=== PATIENT | male | born 1935 | race Hispanic/Latino ===

== ENCOUNTER 2018-03-28 07:54 | Observation (INO) | payer MEDICARE ==
[2018-03-26 08:42] VITALS: BP 147/69
[2018-03-26 08:44] LABS: BASOPHILS % (AUTO) 0.6 % (0.0-5.0); HEMATOCRIT 44.8 % (42-54); LYMPHOCYTES % (AUTO) 16.7 % (21.0-51.0); MEAN CORPUSCULAR HEMOGLOBIN 30.6 pg (27.0-33.0); MEAN CORPUSCULAR HGB CONC 34.2 g/dL (32.0-36.0); MEAN CORPUSCULAR VOLUME 89.5 fL (79-99); MONOCYTES % (AUTO) 12.4 % (3.0-13.0); NEUTROPHILS % (AUTO) 67.3 % (40.0-77.0); PLATELET COUNT (AUTO) 177 K/uL (130-400); RED CELL DISTRIBUTION WIDTH 13.2 % (11.0-15.5); WHITE BLOOD COUNT (AUTO) 5.8 K/uL (4.8-10.8)
[2018-03-26 08:52] LABS: POTASSIUM 3.9 mmol/L (3.5-5.1)
[2018-03-26 08:57] LABS: INR 1.05 (0.85-1.15); PARTIAL THROMBOPLASTIN TIME 29.9 SEC (26.3-35.5)
[~2018-03-28] VITALS: Ht 162.6 cm; Wt 86.5 kg
[2018-03-28] VITALS (11 sets, daily range): BP systolic 98–152; BP diastolic 53–77
[~2018-03-28 07:54] MED LIST: ATOR20TA65 PO; FINA5TAB41 PO; METF-444 PO; TIMO5DRO35 OS
[2018-03-28] MEDS ORDERED: SODIUM CHLORIDE 0.9% 1000ML 1,000 ML IV SCH (08:00)
[2018-03-28] MEDS ORDERED: CEFAZOLIN SODIUM 1 GM VIAL ONE (12:49)
[2018-03-28] MEDS ORDERED: BUPIVACAINE/PF 0.25% 50ML VIAL IJ ONE (12:49)
[2018-03-28] MEDS ORDERED: LIDOCAINE HCL 1% MDV 50ML VIAL ONE (12:49)
[2018-03-28] MEDS ORDERED: IODIXANOL 320 MG/ML 100 ML VIAL ONE (13:06)
[2018-03-28] MEDS ORDERED: MEPERIDINE-PF 25 MG/ML SYG ONE ×3 (13:06→13:47)
[2018-03-28] MEDS ORDERED: MIDAZOLAM HCL 1 MG/ML 2ML VIAL ONE ×3 (13:06→13:47)
[2018-03-28] MEDS ORDERED: OCTYL 2-CYANOACRYLATE 1 EACH TP ONE (14:29)
[2018-03-28] MEDS ORDERED: ONDANSETRON HCL 4 MG/2 ML VIAL IV PRN (15:15)
[2018-03-28] MEDS ORDERED: ACETAMINOPHEN-CODEINE 300/30MG TAB PO PRN ×2 (15:15)
[2018-03-28] MEDS ORDERED: TEMAZEPAM 30 MG CAP PO PRN (15:15)
[2018-03-28] MEDS ORDERED: ACETAMINOPHEN 325 MG TAB PO PRN ×2 (15:15)
[2018-03-28] MEDS ORDERED: DOXY100T2 PO (15:34)
[2018-03-28] MEDS ORDERED: INSULIN HUMULIN R 100 UNIT/ML 3ML SQ SCH ×2 (16:30→21:00)
[2018-03-28] MEDS ORDERED: GLUCAGON 1MG KIT 1 MG ML IM PRN (18:30)
[2018-03-28] MEDS ORDERED: DEXTROSE 50%-WATER 50 ML DISP.SYRIN IV PRN (18:30)
[2018-03-28] MEDS: CEFAZOLIN SODIUM 1 GM VIAL IVP SCH (19:55)
[2018-03-28] MEDS ORDERED: ATORVASTATIN CALCIUM 20 MG TABLET PO SCH (21:00)
[2018-03-29 03:00] VITALS: BP 104/58
[2018-03-29 04:21] LABS: BILIRUBIN,TOTAL 1.5 mg/dL (0.2-1.0); POTASSIUM 3.9 mmol/L (3.5-5.1); TOTAL PROTEIN, SERUM 6.2 g/dL (6.0-8.3)
[2018-03-29] MEDS: CEFAZOLIN SODIUM 1 GM VIAL IVP SCH (04:21)
[2018-03-29 07:28] VITALS: BP 119/65
[2018-03-29] MEDS ORDERED: TIMOLOL OS SCH (08:00)
[2018-03-29] MEDS ORDERED: METFORMIN HCL 500 MG TAB.SR.24H PO SCH (09:00)
[2018-03-29] MEDS ORDERED: FINASTERIDE 5 MG TABLET PO SCH (09:00)
[2018-03-29 11:27] VITALS: BP 119/59
== END 2018-03-29 12:10 | disposition home or self-care (01) ==
LOC: DAH 07:54 → DAHIP 07:55 → 2AH 16:05
PROVIDERS: ADMIT Internal Medicine Cardiovascular Disease; ATTEND Internal Medicine Cardiovascular Disease
DX: I44.2 Atrioventricular block, complete (principal); I49.5 Sick sinus syndrome; E11.9 Type 2 diabetes mellitus without complications; I50.42 Chronic combined systolic (congestive) and diastolic (congestive) heart failure; I11.0 Hypertensive heart disease with heart failure; E78.5 Hyperlipidemia, unspecified; F41.9 Anxiety disorder, unspecified; Z95.0 Presence of cardiac pacemaker; Z79.899 Other long term (current) drug therapy; Z90.49 Acquired absence of other specified parts of digestive tract
CPT/HCPCS: 33225; 33229; 36415 ×2; 71046; 80048; 80053; 82948 ×5; 85025; 85610; 85730; 93005 ×2; 96372; 96374; 96376; A4606; C1769 ×2; C1894; C1900; C2621; G0378 ×28; J0690 ×3; J1815; J2175 ×3; J2250 ×3; J3490 ×2; Q9967; 99156; 99157

== ENCOUNTER → 2018-12-27 | Outpatient (CLI) | payer MEDICARE ==
[~2018-12-27] MED LIST changes: +DOXY100T2 PO
== END | disposition home or self-care (01) ==
LOC: SHCH 12:00
PROVIDERS: ATTEND Internal Medicine Cardiovascular Disease
DX: I11.9 Hypertensive heart disease without heart failure (principal); I35.8 Other nonrheumatic aortic valve disorders; I65.23 Occlusion and stenosis of bilateral carotid arteries
CPT/HCPCS: 93306; 93880

== ENCOUNTER 2019-06-25 08:44 | Emergency (ER) | payer MEDICARE ==
[2019-06-25 09:19] LABS: BASOPHILS % (AUTO) 0.5 % (0.0-5.0); EOSINOPHILS % (AUTO) 3.5 % (0.0-8.0); HEMATOCRIT 45.5 % (42-54); MEAN CORPUSCULAR HEMOGLOBIN 30.1 pg (27.0-33.0); MEAN CORPUSCULAR HGB CONC 33.8 g/dL (32.0-36.0); MEAN CORPUSCULAR VOLUME 88.9 fL (79-99); MONOCYTES % (AUTO) 12.3 % (3.0-13.0); NEUTROPHILS % (AUTO) 66.4 % (40.0-77.0); PLATELET COUNT (AUTO) 154 K/uL (130-400); RED BLOOD CELL COUNT(AUTO) 5.12 MIL/uL (4.50-6.20); RED CELL DISTRIBUTION WIDTH 12.3 % (11.0-15.5); WHITE BLOOD COUNT (AUTO) 5.9 K/uL (4.8-10.8)
[2019-06-25 09:37] LABS: INR 1.04 (0.85-1.15); PARTIAL THROMBOPLASTIN TIME 26.1 SEC (26.3-35.5); PROTHROMBIN TIME 10.9 SEC (9.6-11.6)
[2019-06-25 09:44] LABS: CREATININE 0.9 mg/dL (0.5-1.5)
[2019-06-25 09:49] LABS: ALBUMIN 3.8 g/dL (3.5-5.0); BILIRUBIN,TOTAL 0.9 mg/dL (0.2-1.0); TOTAL PROTEIN, SERUM 7.3 g/dL (6.0-8.3)
[2019-06-25 10:05] LABS: B-TYPE NATRIURETIC PEPTIDE 84 pg/mL (0-100)
== END 2019-06-25 13:23 | disposition home or self-care (01) ==
LOC: EDH 08:44
DX: K59.00 Constipation, unspecified (principal); R06.00 Dyspnea, unspecified; E11.9 Type 2 diabetes mellitus without complications; Z95.0 Presence of cardiac pacemaker; Z72.0 Tobacco use
CPT/HCPCS: 36415; 71045; 74176; 80053; 82550; 83880; 84484; 85025; 85610; 85730; 93005

== ENCOUNTER → 2020-04-07 | Outpatient (CLI) | payer OTHER, MEDICARE | END | disposition home or self-care (01) | LOC: SHCH 15:27 | PROVIDERS: ATTEND Internal Medicine Cardiovascular Disease | DX: I10 Essential (primary) hypertension (principal) | CPT/HCPCS: 93306 ==

== ENCOUNTER → 2020-09-30 | Outpatient (CLI) | payer OTHER, MEDICARE | END | disposition home or self-care (01) | LOC: SHCH 14:37 | PROVIDERS: ATTEND Internal Medicine Cardiovascular Disease | DX: I10 Essential (primary) hypertension (principal); I65.23 Occlusion and stenosis of bilateral carotid arteries | CPT/HCPCS: 93306; 93356; 93880 ==

== ENCOUNTER → 2021-10-22 | Outpatient (CLI) | payer OTHER, MEDICARE ==
[~2021-10-22] VITALS: Ht 162.6 cm; Wt 83.9 kg
[~2021-10-22] MED LIST changes: +REGADENOSON 0.4 MG/5 ML PF SYG IVP SCH
== END | disposition home or self-care (01) ==
LOC: SHCH 08:32
PROVIDERS: ATTEND Internal Medicine Cardiovascular Disease
DX: R07.9 Chest pain, unspecified (principal); Z95.0 Presence of cardiac pacemaker
CPT/HCPCS: 78452; 93017; 96374; A9500 ×2; J2785

== ENCOUNTER 2022-04-22 05:46 | Day surgery (SDC) | payer OTHER, MEDICARE ==
[2022-04-20 11:43] LABS: BASOPHILS % (AUTO) 0.7 % (0.0-5.0); EOSINOPHILS % (AUTO) 3.7 % (0.0-8.0); HEMATOCRIT 44.9 % (42-54); LYMPHOCYTES % (AUTO) 16.5 % (21.0-51.0); MEAN CORPUSCULAR HEMOGLOBIN 30.6 pg (27.0-33.0); MEAN CORPUSCULAR HGB CONC 33.9 g/dL (32.0-36.0); MEAN CORPUSCULAR VOLUME 90.5 fL (79-99); NEUTROPHILS % (AUTO) 66.7 % (40.0-77.0); PLATELET COUNT (AUTO) 173 K/uL (130-400); RED BLOOD CELL COUNT(AUTO) 4.96 MIL/uL (4.50-6.20); RED CELL DISTRIBUTION WIDTH 12.3 % (11.0-15.5); WHITE BLOOD COUNT (AUTO) 5.3 K/uL (4.8-10.8)
[2022-04-20 11:50] LABS: CREATININE 0.9 mg/dL (0.5-1.5)
[2022-04-20 12:08] LABS: INR 1.05 (0.85-1.15); PROTHROMBIN TIME 11.4 SEC (9.6-11.6)
[2022-04-20 12:09] LABS: PARTIAL THROMBOPLASTIN TIME 27.7 SEC (26.3-35.5)
[2022-04-21 09:14] VITALS: BP 161/71
[2022-04-22] VITALS (11 sets, daily range): BP systolic 107–171; BP diastolic 61–87
[~2022-04-22] VITALS: Ht 157.5 cm; Wt 82.4 kg
[~2022-04-22 05:46] MED LIST changes: -DOXY100T2 PO; +METO-408 PO; +PARO10TA71 PO; -REGADENOSON 0.4 MG/5 ML PF SYG IVP SCH; +TAMS-1 PO; -TIMO5DRO35 OS
[2022-04-22] MEDS ORDERED: 0.9%NACL 1000ML 1,000 ML IV ONE (06:20)
[2022-04-22] MEDS ORDERED: LIDOCAINE HCL 1% 20 ML VIAL ONE (07:09)
[2022-04-22] MEDS ORDERED: MIDAZOLAM HCL 1 MG/ML 2ML VIAL ONE (07:10)
[2022-04-22] MEDS ORDERED: CEFAZOLIN SODIUM 1 GM VIAL ONE ×2 (07:10→10:08)
[2022-04-22] MEDS ORDERED: BUPIVACAINE/PF 0.25% 30ML VIAL IJ ONE (07:10)
[2022-04-22] MEDS ORDERED: MEPERIDINE-PF 50 MG/ML SYG ONE (07:10)
[2022-04-22] MEDS ORDERED: BACITRACIN 1 EACH PACKET TP ONE (08:08)
[2022-04-22] MEDS ORDERED: ACETAMINOPHEN WITH CODEINE 1 TAB TAB PO PRN ×2 (09:00)
[2022-04-22] MEDS ORDERED: ONDANSETRON 4MG INJ IV PRN (09:00)
[2022-04-22] MEDS ORDERED: CEFAZOLIN SODIUM 2 GM VIAL IVP SCH (12:30)
== END 2022-04-22 12:42 | disposition home or self-care (01) ==
LOC: DAH 05:46
PROVIDERS: ATTEND Internal Medicine Cardiovascular Disease
DX: Z45.010 Encounter for checking and testing of cardiac pacemaker pulse generator [battery] (principal); I49.5 Sick sinus syndrome; I11.0 Hypertensive heart disease with heart failure; I50.20 Unspecified systolic (congestive) heart failure; I44.2 Atrioventricular block, complete; E11.9 Type 2 diabetes mellitus without complications; F41.9 Anxiety disorder, unspecified; Z79.01 Long term (current) use of anticoagulants; Z90.49 Acquired absence of other specified parts of digestive tract; Z79.84 Long term (current) use of oral hypoglycemic drugs; Z79.899 Other long term (current) drug therapy
CPT/HCPCS: 80048; 85025; 85610; 85730; 36415; 93005; 33229; 82948; C2621; J0690 ×2; J7030; J3490; J2250; J2175; A4215; A4222; A4221; A4663; A4216; A4606; A4223 ×3; 33264; 99156; 99157

== ENCOUNTER → 2024-07-02 | Outpatient (CLI) | payer OTHER, MEDICARE ==
--- NOTE | 2024-07-02 17:20 | HMCSR ---
APPROVED REPORT EXAM: Two-dimensional and M-mode echocardiogram with Doppler and color Doppler. INDICATION ICD: I10.0 Essential (primary) Hypertension 2D Dimensions RVDd4.2 cmLVEF(%)55.0 (>50%)LVED Vol(simp.)70.6 mL IVSd1.0 (0.7-1.1cm)LA (2D)5.0 (1.6-4.0cm)LVES Vol(simp.)32.1 mL LVDd4.6 (3.8-5.6cm)Ao Root(2D)3.8 (2.0-3.7cm)LVEF(%, simp.)55 % PWd0.9 (0.7-1.1cm)LVOT diam2.4 (1.8-2.4cm)LA ESV INDEX (4CH)28.00 mL/m2 IVSs1.1 cmLA ESV INDEX (2CH)22.50 mL/m2 LVDs3.7 (2.5-4.0cm)LA ESV INDEX (BP)26.40 mL/m2 PWs0.7 cm M-Mode Dimensions EPSS1.3 cm LA (MM)5.3 (1.6-4.0cm) Ao Root(MM)3.9 (2.0-3.7cm) Aortic Valve AoV VTI0.5 mAo Mean GR15.0 mmHgLVOT VTI0.22 m EMELI (VMAX)2.0 cm2AVA (VTI) 2.0 cm2 Mitral Valve MV E Vmax51.9 cm/sDECEL Ngsp349 ms MV A Vmax54.8 cm/sP 1/2 T57 ms E/A ratio0.9MVA (PHT)3.9 cm2 TDI E/E' Ygjjch57.4E/E' Djsmtqi82.8 Medial E' Peak V5.00 cm/sLateral E' Peak V4.80 cm/s Pulmonary Valve PV VTI0.21 mPV Mean GR2 mmHg Left Ventricle Left ventricular cavity size is normal. There is normal LV segmental wall motion. There is normal lef t ventricular wall thickness. LVEF is 55%. No left ventricle thrombus noted on this study. The left v entricular diastolic function is normal. Right Ventricle The right ventricle is normal size. The right ventricular systolic function is normal. Atria The left atrium is moderately dilated. The right atrium size is normal. Aortic Valve The aortic valve is mildly thickened but opens well. No aortic regurgitation is present. There is mil d valvular aortic stenosis. Mitral Valve The mitral valve is normal in structure. There is no mitral valve regurgitation noted. There is no mi tral valve stenosis. Tricuspid Valve The tricuspid valve is normal in structure. There is no tricuspid valve regurgitation noted. Pulmonic Valve The pulmonary valve is normal in structure. There is no pulmonic valvular regurgitation. Great Vessels The aortic root is normal in size. IVC is not well visualized. Pericardium There is no pericardial effusion. Conclusion Left ventricular cavity size is normal. There is normal left ventricular wall thickness. LVEF is 55%. The right ventricle is normal size. The left atrium is moderately dilated. The aortic valve is mildly thickened but opens well. No aortic regurgitation is present. There is mild valvular aortic stenosis. The mitral valve is normal in structure. There is no mitral valve regurgitation noted. The tricuspid valve is normal in structure. There is no pulmonic valvular regurgitation. The aortic root is normal in size. IVC is not well visualized. There is no pericardial effusion.
== END | disposition home or self-care (01) ==
LOC: RAH 10:35
PROVIDERS: ATTEND Internal Medicine Cardiovascular Disease
DX: I35.0 Nonrheumatic aortic (valve) stenosis (principal); I11.9 Hypertensive heart disease without heart failure
CPT/HCPCS: 93306